=== PATIENT | male | born 1985 ===

== ENCOUNTER 2018-10-29 19:34 | Emergency (ER) | payer MEDICAID ==
[2018-10-29] MEDS ORDERED: Sulfamethoxazole/Trimethoprim 800-160 MG Tab PO ONE (20:25)
[2018-10-29] MEDS ORDERED: cefTRIAXone 1 GM Vial IM ONE (20:25)
--- NOTE | 2018-10-29 20:26 | EDM.PDOC ---
ED HPI GENERAL MEDICAL PROBLEM - General Chief Complaint: Skin Complaint Stated Complaint: SORE ON BEHIND Time Seen by Provider: 10/29/18 20:26 Source of Information: Reports: Patient - History of Present Illness INITIAL COMMENTS - FREE TEXT/NARRATIVE: HISTORY AND PHYSICAL: History of present illness: []Patient has a hand-sized cellulitis on his right buttock, measures 14 cm x 9 cm centrally there is a small area of induration approximately 3 cm in diameter there is no fluctuance or open lesion no exudate for drainage for culture No fever nausea vomiting chills sweats no chest pain shortness breath headache dizziness palpitation no bowel or urine symptoms Review of systems: As per history of present illness and below otherwise all systems reviewed and negative. Past medical history: As per history of present illness and as reviewed below otherwise noncontributory. Surgical history: As per history of present illness and as reviewed below otherwise noncontributory. Social history: No reported history of drug or alcohol abuse. Family history: As per history of present illness and as reviewed below otherwise noncontributory. Physical exam: HEENT: Atraumatic, normocephalic, pupils reactive, negative for conjunctival pallor or scleral icterus, mucous membranes moist, throat clear, neck supple, nontender, trachea midline. Lungs: Clear to auscultation, breath sounds equal bilaterally, chest nontender. Heart: S1S2, regular, negative for clicks, rubs, or JVD. Abdomen: Soft, nondistended, nontender. Negative for masses or hepatosplenomegaly. Negative for costovertebral tenderness. Pelvis: Stable nontender. Genitourinary: Deferred. Rectal: Deferred. Extremities: Atraumatic, negative for cords or calf pain. Neurovascular unremarkable. Neuro: Awake, alert, oriented. Cranial nerves II through XII unremarkable. Cerebellum unremarkable. Motor and sensory unremarkable throughout. Exam nonfocal. Diagnostics: []Clinical Marcated with skin pen Therapeutics: Gram Rocephin IV Bactrim double strength by mouth twice a day #20 no refill [] Impression: [1 g Rocephin IM Bactrim double strength by mouth now and twice a day #20 no refill ] Definitive disposition and diagnosis as appropriate pending reevaluation and review of above. right buttock Pain Score (Numeric/FACES): 9 - Related Data Allergies Allergy/AdvReac Type Severity Reaction Status Date / Time No Known Allergies Allergy Verified 10/29/18 20:20 Home Meds: Home Meds . [No Known Home Meds] 10/29/18 [History] Past Medical History - Past Surgical History GI Surgical History: Reports: Hernia, Inguinal Social & Family History - Family History Family Medical History: Noncontributory - Tobacco Use Smoking Status *Q: Current Every Day Smoker Years of Tobacco use: 20 Packs/Tins Daily: 1 - Recreational Drug Use Recreational Drug Use: Yes Drug Use in Last 12 Months: Yes Recreational Drug Type: Reports: Methamphetamine Recreational Drug Use Frequency: Daily ED ROS GENERAL - Review of Systems Review Of Systems: See Below ED EXAM, SKIN/RASH Exam: See Below Course - Vital Signs Last Recorded V/S: Last Vital Signs Temp 99 F 10/29/18 20:10 Pulse 110 H 10/29/18 20:10 Resp 16 10/29/18 20:10 BP 102/49 L 10/29/18 20:10 Pulse Ox 99 10/29/18 20:10 - Orders/Labs/Meds Meds: Medications Discontinued Medications Generic Name Dose Route Start Last Admin Trade Name Freq PRN Reason Stop Dose Admin Ceftriaxone Sodium 1 gm 10/29/18 20:25 Rocephin IM 10/29/18 20:26 ONETIME ONE Trimethoprim/Sulfamethoxazole 1 tab 10/29/18 20:25 Septra Ds PO 10/29/18 20:26 ONETIME ONE Departure - Departure Time of Disposition: 20:34 Disposition: Home, Self-Care 01 Condition: Good Clinical Impression: Cellulitis - Discharge Information Referrals: PCP,None [Primary Care Provider] - Forms: ED Department Discharge Additional Instructions: The following information is given to patients seen in the emergency department who are being discharged to home. This information is to outline your options for follow-up care. We provide all patients seen in our emergency department with a follow-up referral. The need for follow-up, as well as the timing and circumstances, are variable depending upon the specifics of your emergency department visit. If you don't have a primary care physician on staff, we will provide you with a referral. We always advise you to contact your personal physician following an emergency department visit to inform them of the circumstance of the visit and for follow-up with them and/or the need for any referrals to a consulting specialist. The emergency department will also refer you to a specialist when appropriate. This referral assures that you have the opportunity for follow-up care with a specialist. All of these measure are taken in an effort to provide you with optimal care, which includes your follow-up. Under all circumstances we always encourage you to contact your private physician who remains a resource for coordinating your care. When calling for follow-up care, please make the office aware that this follow-up is from your recent emergency room visit. If for any reason you are refused follow-up, please contact the [facility] emergency department at and asked to speak to the emergency department charge nurse.
[2018-10-29] MEDS ORDERED: Lidocaine 1% 4 ML ONE (20:39)
== END 2018-10-29 21:00 | disposition home or self-care (01) ==
LOC: MW.ED 19:34
DX: L03.317 Cellulitis of buttock (principal); F17.210 Nicotine dependence, cigarettes, uncomplicated
CPT/HCPCS: 96372; 99283; A9270; J0696; J2001

== ENCOUNTER 2018-10-31 01:00 | Inpatient (IN) | payer MEDICAID ==
--- NOTE | 2018-10-31 01:03 | EDM.PDOC ---
ED HPI GENERAL MEDICAL PROBLEM - General Stated Complaint: SORE ON BEHIND, FEVER, VOMITING Time Seen by Provider: 10/31/18 01:02 Source of Information: Reports: Patient - History of Present Illness INITIAL COMMENTS - FREE TEXT/NARRATIVE: HISTORY AND PHYSICAL: History of present illness: [Patient presents with a cellulitis on his right buttock he was seen 2-3 days prior through the emergency room and placed on Bactrim, he was noncompliant with medication and did not fill the prescription electing to take some Keflex he had left over, the nidus of the lesion did abscess and drain on its own at home was able to express some purulence here for culture tonight This has spread outside the lines of demarcation make an approximately an 18 cm by 6-8 cm lesion Patient has subjective fever and some vomiting no chills or sweats no chest pain shortness breath headache dizziness palpitation about a urine symptoms Review of systems: As per history of present illness and below otherwise all systems reviewed and negative. Past medical history: As per history of present illness and as reviewed below otherwise noncontributory. Surgical history: As per history of present illness and as reviewed below otherwise noncontributory. Social history: No reported history of drug or alcohol abuse. Family history: As per history of present illness and as reviewed below otherwise noncontributory. Physical exam: HEENT: Atraumatic, normocephalic, pupils reactive, negative for conjunctival pallor or scleral icterus, mucous membranes moist, throat clear, neck supple, nontender, trachea midline. Lungs: Clear to auscultation, breath sounds equal bilaterally, chest nontender. Heart: S1S2, regular, negative for clicks, rubs, or JVD. Abdomen: Soft, nondistended, nontender. Negative for masses or hepatosplenomegaly. Negative for costovertebral tenderness. Pelvis: Stable nontender. Genitourinary: Deferred. Rectal: Deferred. Extremities: Atraumatic, negative for cords or calf pain. Neurovascular unremarkable. Neuro: Awake, alert, oriented. Cranial nerves II through XII unremarkable. Cerebellum unremarkable. Motor and sensory unremarkable throughout. Exam nonfocal. GEN as per history of present illness right buttock affected Diagnostics: [] CBC CMP blood cultures Therapeutics: Vancomycin Clindamycin Normal saline I&D performed-suppressed a small amount of exudate Lidocaine T dap Wound is flushed and iodoform packing no complication or complaint [] Impression: [ cellulitis and abscess right buttock ] Definitive disposition and diagnosis as appropriate pending reevaluation and review of above. right buttocks Pain Score (Numeric/FACES): 7 - Related Data Allergies Allergy/AdvReac Type Severity Reaction Status Date / Time No Known Allergies Allergy Verified 10/31/18 01:10 Past Medical History - Past Surgical History GI Surgical History: Reports: Hernia, Inguinal Social & Family History - Family History Family Medical History: Noncontributory ED ROS GENERAL - Review of Systems Review Of Systems: See Below ED EXAM, GENERAL - Physical Exam Exam: See Below Course - Vital Signs Last Recorded V/S: Last Vital Signs Temp 97 F 10/31/18 01:10 Pulse 106 H 10/31/18 01:10 Resp 18 10/31/18 01:10 BP 150/79 H 10/31/18 01:10 Pulse Ox 98 10/31/18 01:10 - Orders/Labs/Meds Orders: Active Orders 24 hr Category Date Time Status Vaccines to be Administered [RC] PER UNIT ROUTINE Care 10/31/18 01:34 Active CULTURE BLOOD [BC] Stat Lab 10/31/18 01:23 Received CULTURE BLOOD [BC] Stat Lab 10/31/18 01:38 Received CULTURE WOUND [RM] Stat Lab 10/31/18 01:13 Received CULTURE WOUND [RM] Stat Lab 10/31/18 01:50 Ordered UA RFX JESUS AND CULT IF INDIC [URIN] Stat Lab 10/31/18 01:03 Ordered Clindamycin Phosphate [Cleocin] 300 mg Med 10/31/18 02:13 Active Sodium Chloride 0.9% [Normal Saline] 50 ml IV ONETIME Sodium Chloride 0.9% [Normal Saline] 1,000 ml Med 10/31/18 02:30 Ordered IV STAT Vancomycin [Vancocin] 1 gm Med 10/31/18 02:13 Active Sodium Chloride 0.9% [Normal Saline] 250 ml IV ONETIME Blood Culture x2 Reflex Set [OM.PC] Stat Oth 10/31/18 01:03 Ordered Medication Orders Clindamycin Phosphate 300 mg/ (Sodium Chloride) 52 mls @ 100 mls/hr IV ONETIME ONE Stop: 10/31/18 02:44 Vancomycin HCl 1 gm/ Sodium (Chloride) 250 mls @ 250 mls/hr IV ONETIME ONE Stop: 10/31/18 03:12 Labs: Laboratory Tests 10/31/18 10/31/18 Range/Units 01:23 01:23 WBC 21.44 H (4.0-11.0) K/uL RBC 4.07 L (4.50-5.90) M/uL Hgb 12.4 L (13.0-17.0) g/dL Hct 37.2 L (38.0-50.0) % MCV 91.4 (80.0-98.0) fL MCH 30.5 (27.0-32.0) pg MCHC 33.3 (31.0-37.0) g/dL RDW Std Deviation 43.8 (28.0-62.0) fl RDW Coeff of Mirta 13 (11.0-15.0) % Plt Count 214 (150-400) K/uL MPV 9.80 (7.40-12.00) fL Add Manual Diff YES Neutrophils % (Manual) 69 (48.0-80.0) % Band Neutrophils % 2 % Lymphocytes % (Manual) 19 (16.0-40.0) % Monocytes % (Manual) 9 (0.0-15.0) % Eosinophils % (Manual) 1 (0.0-7.0) % Absolute Seg Neuts 14.8 H (1.4-5.7) Band Neutrophils # 0.4 Lymphocytes # (Manual) 4.1 H (0.6-2.4) Monocytes # (Manual) 1.9 H (0.0-0.8) Eosinophils # (Manual) 0.2 (0.0-0.7) Sodium 135 L (136-148) mmol/L Potassium 4.0 (3.5-5.1) mmol/L Chloride 101 (98-107) mmol/L Carbon Dioxide 23.5 (21.0-32.0) mmol/L BUN 9 (7.0-18.0) mg/dL Creatinine 0.8 (0.8-1.3) mg/dL Est Cr Clr Drug Dosing 128.88 mL/min Estimated GFR (MDRD) > 60.0 ml/min Glucose 146 H (74-106) mg/dL Calcium 9.0 (8.5-10.1) mg/dL Total Bilirubin 0.5 (0.2-1.0) mg/dL AST 25 (15-37) IU/L ALT 73 H (14-63) IU/L Alkaline Phosphatase 111 (46-116) U/L Total Protein 7.6 (6.4-8.2) g/dL Albumin 3.3 L (3.4-5.0) g/dL Globulin 4.3 H (2.6-4.0) g/dL Albumin/Globulin Ratio 0.8 L (0.9-1.6) Meds: Medications Generic Name Dose Route Start Last Admin Trade Name Freq PRN Reason Stop Dose Admin Clindamycin Phosphate 300 mg/ 52 mls @ 100 mls/hr 10/31/18 02:13 Sodium Chloride IV 10/31/18 02:44 ONETIME ONE Vancomycin HCl 1 gm/ Sodium 250 mls @ 250 mls/hr 10/31/18 02:13 Chloride IV 10/31/18 03:12 ONETIME ONE Discontinued Medications Generic Name Dose Route Start Last Admin Trade Name Freq PRN Reason Stop Dose Admin Diphtheria/Tetanus/Acell Pertussis 0.5 ml 10/31/18 01:34 10/31/18 01:39 Adacel IM 10/31/18 01:35 0.5 ml .ONCE ONE Administration Sodium Chloride 1,000 mls @ 999 mls/hr 10/31/18 01:04 10/31/18 01:28 Normal Saline IV 10/31/18 02:04 999 mls/hr STAT ONE Administration Lidocaine HCl Confirm 10/31/18 01:58 Xylocaine-Mpf 1% Administered 10/31/18 01:59 Dose 5 mls @ as directed .ROUTE .STK-MED ONE Lidocaine HCl 10 ml 10/31/18 01:27 10/31/18 01:46 Xylocaine 1% INJECT 10/31/18 01:28 Not Given ONETIME ONE Lidocaine HCl 5 ml 10/31/18 01:37 10/31/18 02:00 Xylocaine-Mpf 1% INJECT 10/31/18 01:38 5 ml ONETIME ONE Administration Departure - Departure Time of Disposition: 02:18 Disposition: Admitted As Inpatient 64 Condition: Fair Clinical Impression: Abscess, Cellulitis and abscess of buttock - Discharge Information Referrals: PCP,None [Primary Care Provider] - - My Orders Last 24 Hours: My Active Orders 10/31/18 01:03 UA RFX JESUS AND CULT IF INDIC [URIN] Stat Blood Culture x2 Reflex Set [OM.PC] Stat 10/31/18 01:13 CULTURE WOUND [RM] Stat 10/31/18 01:23 CULTURE BLOOD [BC] Stat 10/31/18 01:34 Vaccines to be Administered [RC] PER UNIT ROUTINE 10/31/18 01:38 CULTURE BLOOD [BC] Stat 10/31/18 01:50 CULTURE WOUND [RM] Stat 10/31/18 02:13 Clindamycin Phosphate [Cleocin] 300 mg Sodium Chloride 0.9% [Normal Saline] 50 ml IV ONETIME Vancomycin [Vancocin] 1 gm Sodium Chloride 0.9% [Normal Saline] 250 ml IV ONETIME 10/31/18 02:30 Sodium Chloride 0.9% [Normal Saline] 1,000 ml IV STAT - Assessment/Plan Last 24 Hours: My Active Orders 10/31/18 01:03 UA RFX JESUS AND CULT IF INDIC [URIN] Stat Blood Culture x2 Reflex Set [OM.PC] Stat 10/31/18 01:13 CULTURE WOUND [RM] Stat 10/31/18 01:23 CULTURE BLOOD [BC] Stat 10/31/18 01:34 Vaccines to be Administered [RC] PER UNIT ROUTINE 10/31/18 01:38 CULTURE BLOOD [BC] Stat 10/31/18 01:50 CULTURE WOUND [RM] Stat 10/31/18 02:13 Clindamycin Phosphate [Cleocin] 300 mg Sodium Chloride 0.9% [Normal Saline] 50 ml IV ONETIME Vancomycin [Vancocin] 1 gm Sodium Chloride 0.9% [Normal Saline] 250 ml IV ONETIME 10/31/18 02:30 Sodium Chloride 0.9% [Normal Saline] 1,000 ml IV STAT
[2018-10-31] MEDS ORDERED: Sodium Chloride 0.9% 1,000 ML IV ONE (01:04)
[2018-10-31] MEDS ORDERED: Lidocaine 1% 10 ML MDV INJECT ONE (01:27)
[2018-10-31] MEDS ORDERED: Diphtheria,Pertussis(Acell),Tetanus Vaccine 0.5 ML Syringe IM ONE (01:34)
[2018-10-31] MEDS ORDERED: Lidocaine 1% 0 ML ONE (01:58)
[2018-10-31 02:02] LABS: CHLORIDE,CL 101 mmol/L (98-107); SODIUM,NA 135 mmol/L (136-148)
[2018-10-31] MEDS ORDERED: Sodium Chloride 0.9% 1,000 ML IV SCH ×2 (02:30→03:15)
[2018-10-31] MEDS ORDERED: Acetaminophen 325 MG Tab PO PRN (03:09)
[2018-10-31] MEDS ORDERED: oxyCODONE 5 MG Tab PO PRN (03:09)
[2018-10-31] MEDS ORDERED: Morphine 2 MG/ML Syringe IVPUSH PRN (03:10)
[2018-10-31] MEDS ORDERED: Ondansetron 4 MG Tab.DIS PO PRN (03:10)
[2018-10-31] MEDS ORDERED: Clindamycin Phosphate in D5W 300 MG in Premix Bag 1 BAG IV ONE ×2 (04:00)
[2018-10-31] MEDS ORDERED: Piperacillin/Tazobactam 4.5 GM in Sodium Chloride 0.9% 100 ML IV SCH (08:30)
--- NOTE | 2018-10-31 09:18 | PCM.HP ---
<Tam Sheets - Last Filed: 10/31/18 09:13> H&P History of Present Illness - General Date of Service: 10/31/18 Admit Problem/Dx: Admission Diagnosis/Problem Admission Diagnosis/Problem Cellulitis and abscess of buttock Source of Information: Patient History Limitations: Reports: No Limitations - History of Present Illness Initial Comments - Free Text/Narative: This is a 33M with no past medical history that presented to the ER w/ concerns of a "boil" on his right buttocks. Patient was seen in the ER earlier this week and was discharged home on PO Bactrim. Patient says that he didn't parts picker this prescription, and instead tried a home remedy with his girlfriend involving milk. Patient then came back to the ER w/ concerns of increased pain, subjective fever. He had an I&D done in the ER which he sees provided immediate relief. He feels much better this AM with much less pain, no subjective fever. ER course: WBC count 21k Glucose 146 hemodynamically stable, afebrile. negative lactate blood cultures obtained Obtained ESR - 61 right buttocks Pain Score (Numeric/FACES): 0 - Related Data Allergies/Adverse Reactions: Allergies Allergy/AdvReac Type Severity Reaction Status Date / Time piperacillin [From Zosyn] Allergy Mild Itching Verified 10/31/18 10:53 tazobactam [From Zosyn] Allergy Mild Itching Verified 10/31/18 10:53 Past Medical History HEENT History: Reports: None Cardiovascular History: Reports: None Respiratory History: Reports: None Gastrointestinal History: Reports: Other (See Below) Other Gastrointestinal History: HERNIA Genitourinary History: Reports: None Musculoskeletal History: Reports: None Neurological History: Reports: None Psychiatric History: Reports: None Endocrine/Metabolic History: Reports: None Hematologic History: Reports: None Oncologic (Cancer) History: Reports: None Dermatologic History: Reports: None - Infectious Disease History Infectious Disease History: Reports: None - Past Surgical History GI Surgical History: Reports: Hernia, Inguinal Social & Family History - Family History Family Medical History: Noncontributory - Tobacco Use Smoking Status *Q: Current Every Day Smoker Years of Tobacco use: 20 Packs/Tins Daily: 0.2 Second Hand Smoke Exposure: Yes - Caffeine Use Caffeine Use: Reports: Soda Caffeine Use Comment: Rarely drinks soda - Recreational Drug Use Recreational Drug Use: Yes Drug Use in Last 12 Months: Yes Recreational Drug Type: Reports: Marijuana/Hashish, Methamphetamine Recreational Drug Last Use: 1 week ago H&P Review of Systems - Review of Systems: Review Of Systems: ROS reveals no pertinent complaints other than HPI. Exam - Exam Exam: See Below - Vital Signs Vital Signs: Last Vital Signs Temp 36.8 C 10/31/18 07:48 Pulse 81 10/31/18 07:48 Resp 16 10/31/18 07:48 BP 128/68 10/31/18 07:48 Pulse Ox 99 10/31/18 07:48 Weight: 82.055 kg - Exam General: Alert, Oriented, 4 HEENT: PERRLA, Hearing Intact, Mucosa Moist & [place], Nares Patent, Normal Nasal Septum, Posterior Pharynx Clear, Conjunctiva Clear, EOMI, EACs Clear, TMs Clear Neck: Supple, Trachea Midline, 2 Lungs: Clear to Auscultation, Normal Respiratory Effort Cardiovascular: Regular Rate, Regular Rhythm GI/Abdominal Exam: Normal Bowel Sounds, Soft, Non-Tender, No Organomegaly, No Distention, No Abnormal Bruit, No Mass, Pelvis Stable Back Exam: Normal Inspection, Full Range of Motion, NT Extremities: Normal Inspection, Normal Range of Motion, Non-Tender, No Pedal Edema, Normal Capillary Refill Peripheral Pulses: 2+: Dorsalis Pedis (L), Dorsalis Pedis (R) Skin: Other (right buttock cellulitis w/pen line indicating decreasing induration and erythema written as "day 3". Nontender to palpation. ) Neurological: Cranial Nerves Intact, Reflexes Equal Bilateral Neuro Extensive - Mental Status: Alert, Oriented x3, Normal Mood/Affect, Normal Cognition Neuro Extensive - Motor, Sensory, Reflexes: CN II-XII Intact, Normal Gait, Normal Reflexes Psychiatric: Alert, Normal Affect, Normal Mood - Patient Data Lab Results Last 24 hrs: Laboratory Results - last 24 hr 10/31/18 10/31/18 10/31/18 Range/Units 01:23 01:23 03:00 WBC 21.44 H (4.0-11.0) K/uL RBC 4.07 L (4.50-5.90) M/uL Hgb 12.4 L (13.0-17.0) g/dL Hct 37.2 L (38.0-50.0) % MCV 91.4 (80.0-98.0) fL MCH 30.5 (27.0-32.0) pg MCHC 33.3 (31.0-37.0) g/dL RDW Std Deviation 43.8 (28.0-62.0) fl RDW Coeff of [place] 13 (11.0-15.0) % Plt Count 214 (150-400) K/uL MPV 9.80 (7.40-12.00) fL Add Manual Diff YES Neutrophils % (Manual) 69 (48.0-80.0) % Band Neutrophils % 2 % Lymphocytes % (Manual) 19 (16.0-40.0) % Monocytes % (Manual) 9 (0.0-15.0) % Eosinophils % (Manual) 1 (0.0-7.0) % Absolute Seg Neuts 14.8 H (1.4-5.7) Band Neutrophils # 0.4 Lymphocytes # (Manual) 4.1 H (0.6-2.4) Monocytes # (Manual) 1.9 H (0.0-0.8) Eosinophils # (Manual) 0.2 (0.0-0.7) Lactate (0.20-2.00) mmol/L Sodium 135 L (136-148) mmol/L Potassium 4.0 (3.5-5.1) mmol/L Chloride 101 (98-107) mmol/L Carbon Dioxide 23.5 (21.0-32.0) mmol/L BUN 9 (7.0-18.0) mg/dL Creatinine 0.8 (0.8-1.3) mg/dL Est Cr Clr Drug Dosing 128.88 mL/min Estimated GFR (MDRD) > 60.0 ml/min Glucose 146 H (74-106) mg/dL Calcium 9.0 (8.5-10.1) mg/dL Total Bilirubin 0.5 (0.2-1.0) mg/dL AST 25 (15-37) IU/L ALT 73 H (14-63) IU/L Alkaline Phosphatase 111 (46-116) U/L Total Protein 7.6 (6.4-8.2) g/dL Albumin 3.3 L (3.4-5.0) g/dL Globulin 4.3 H (2.6-4.0) g/dL Albumin/Globulin Ratio 0.8 L (0.9-1.6) Urine Color YELLOW Urine Appearance CLEAR Urine pH 6.0 (5.0-8.0) Ur Specific [place] 1.025 (1.001-1.035) Urine Protein TRACE H (NEGATIVE) mg/dL Urine Glucose (UA) NEGATIVE (NEGATIVE) mg/dL Urine Ketones NEGATIVE (NEGATIVE) mg/dL Urine Occult Blood MODERATE H (NEGATIVE) Urine Nitrite NEGATIVE (NEGATIVE) Urine Bilirubin NEGATIVE (NEGATIVE) Urine Urobilinogen 0.2 (<2.0) EU/dL Ur Leukocyte Esterase NEGATIVE (NEGATIVE) Urine RBC 1-2 (0-2/HPF) Urine WBC 0-1 (0-5/HPF) Ur Epithelial Cells RARE (NONE-FEW) Urine Bacteria RARE (NEGATIVE) Urine Mucus LIGHT (NONE-MOD) 10/31/18 Range/Units 07:52 WBC (4.0-11.0) K/uL RBC (4.50-5.90) M/uL Hgb (13.0-17.0) g/dL Hct (38.0-50.0) % MCV (80.0-98.0) fL MCH (27.0-32.0) pg MCHC (31.0-37.0) g/dL RDW Std Deviation (28.0-62.0) fl RDW Coeff of Mir[place] (11.0-15.0) % Plt Count (150-400) K/uL MPV (7.40-12.00) fL Add Manual Diff Neutrophils % (Manual) (48.0-80.0) % Band Neutrophils % % Lymphocytes % (Manual) (16.0-40.0) % Monocytes % (Manual) (0.0-15.0) % Eosinophils % (Manual) (0.0-7.0) % Absolute Seg Neuts (1.4-5.7) Band Neutrophils # Lymphocytes # (Manual) (0.6-2.4) Monocytes # (Manual) (0.0-0.8) Eosinophils # (Manual) (0.0-0.7) Lactate 0.7 (0.20-2.00) mmol/L Sodium (136-148) mmol/L Potassium (3.5-5.1) mmol/L Chloride (98-107) mmol/L Carbon Dioxide (21.0-32.0) mmol/L BUN (7.0-18.0) mg/dL Creatinine (0.8-1.3) mg/dL Est Cr Clr Drug Dosing mL/min Estimated GFR (MDRD) ml/min Glucose (74-106) mg/dL Calcium (8.5-10.1) mg/dL Total Bilirubin (0.2-1.0) mg/dL AST (15-37) IU/L ALT (14-63) IU/L Alkaline Phosphatase (46-116) U/L Total Protein (6.4-8.2) g/dL Albumin (3.4-5.0) g/dL Globulin (2.6-4.0) g/dL Albumin/Globulin Ratio (0.9-1.6) Urine Color Urine Appearance Urine pH (5.0-8.0) Ur Specific [place] (1.001-1.035) Urine Protein (NEGATIVE) mg/dL Urine Glucose (UA) (NEGATIVE) mg/dL Urine Ketones (NEGATIVE) mg/dL Urine Occult Blood (NEGATIVE) Urine Nitrite (NEGATIVE) Urine Bilirubin (NEGATIVE) Urine Urobilinogen (<2.0) EU/dL Ur Leukocyte Esterase (NEGATIVE) Urine RBC (0-2/HPF) Urine WBC (0-5/HPF) Ur Epithelial Cells (NONE-FEW) Urine Bacteria (NEGATIVE) Urine Mucus (NONE-MOD) Result Diagrams: 10/31/18 01:23 10/31/18 01:23 Problem List Initiated/Reviewed/Updated: Yes Orders Last 24hrs: Active Orders 24 hr Category Date Time Status Admission Status [Patient Status] [ADT] Stat ADT 10/31/18 02:18 Active Vaccines to be Administered [RC] PER UNIT ROUTINE Care 10/31/18 01:34 Active Regular Diet [DIET] Diet 10/31/18 Breakfast Active BASIC METABOLIC PANEL,BMP [CHEM] AM Lab 11/01/18 05:11 Ordered CBC WITH AUTO DIFF [HEME] AM Lab 11/01/18 05:11 Ordered CULTURE BLOOD [BC] Stat Lab 10/31/18 01:23 Received CULTURE BLOOD [BC] Stat Lab 10/31/18 01:38 Received CULTURE WOUND [RM] Stat Lab 10/31/18 01:13 Received ESR [SEDIMENTATION RATE AUTO] [HEME] Routine Lab 10/31/18 01:23 Received VANCOMYCIN TROUGH [CHEM] Timed Lab 11/01/18 09:30 Ordered Acetaminophen [Tylenol] Med 10/31/18 03:09 Active 650 mg PO Q6H PRN Morphine Med 10/31/18 03:10 Active 1 mg IVPUSH Q2H PRN Ondansetron [Zofran ODT] Med 10/31/18 03:10 Active 4 mg PO Q4H PRN Pharmacy to Dose - Vancomycin Med 10/31/18 03:15 Active 1 dose .XX ASDIRECTED Piperacillin/Tazobactam [Piperacil-Tazobact] 4.5 gm Med 10/31/18 08:30 Active Sodium Chloride 0.9% [Normal Saline] 100 ml IV Q6H Sodium Chloride 0.9% [Normal Saline] 1,000 ml Med 10/31/18 03:15 Active IV ASDIRECTED Vancomycin 1.25 gm Med 10/31/18 10:00 Active Sodium Chloride 0.9% [Normal Saline] 250 ml IV Q8H oxyCODONE Med 10/31/18 03:09 Active 5 mg PO Q4H PRN Blood Culture x2 Reflex Set [OM.PC] Stat Oth 10/31/18 01:03 Ordered Medication Orders Acetaminophen (Tylenol) 650 mg PO Q6H PRN PRN Reason: Pain (mild 1-3) Sodium Chloride (Normal Saline) 1,000 mls @ 100 mls/hr IV ASDIRECTED [facility] Vancomycin HCl 1.25 gm/ Sodium (Chloride) 250 mls @ 166.667 mls/hr IV Q8H [facility] Piperacillin Sod/Tazobactam (Sod 4.5 gm/ Sodium Chloride) 100 mls @ 200 mls/hr IV Q6H [facility] Morphine Sulfate (Morphine) 1 mg IVPUSH Q2H PRN PRN Reason: Pain (severe 7-10) Ondansetron HCl (Zofran Odt) 4 mg PO Q4H PRN PRN Reason: Nausea/Vomiting Oxycodone HCl (Oxycodone) 5 mg PO Q4H PRN PRN Reason: Pain (moderate 4-6) Vancomycin HCl (Pharmacy To Dose - Vancomycin) 1 dose .XX ASDIRECTED [facility] Assessment/Plan Comment:: Assessment: #1. Right buttock cellulitis s/p I&D #2. Leukocytosis #3. Elevated ESR #4. Subjective fever Plan: #1. Admit to the floor as inpatient. Vitals per floor. SCD+Lovenox for DVT Propyhlaxis. Encourage ambulation. #2. IV Vancomycin + Zosyn #3. CBC, BMP, ESR tomorrow morning #4. Pain management as ordered #5. Anticipate discharge 1-2 days. The cellulitis does appear to be improving along with his subjective complaints. Will hold off on surgery consult for now but may be indicated tomorrow based on symptom resolution/lab work. Patient understands and agrees to the plan. <Morteza Conte M - Last Filed: 10/31/18 12:03> H&P History of Present Illness - General Admit Problem/Dx: Admission Diagnosis/Problem Admission Diagnosis/Problem Cellulitis and abscess of buttock I have seen and examined the patient independently of Tam Sheets MD,diploma medical assistant. I have discussed the case with him. I agree with the assessment and plan of care outlined by diploma medical assistant. Please see orders. Exam - Vital Signs Vital Signs: Last Vital Signs Temp 37.2 C 10/31/18 11:41 Pulse 85 10/31/18 11:41 Resp 16 10/31/18 11:41 BP 132/68 10/31/18 11:41 Pulse Ox 97 10/31/18 11:41 - Patient Data Lab Results Last 24 hrs: Laboratory Results - last 24 hr 10/31/18 10/31/18 10/31/18 Range/Units 01:23 01:23 01:23 WBC 21.44 H (4.0-11.0) K/uL RBC 4.07 L (4.50-5.90) M/uL Hgb 12.4 L (13.0-17.0) g/dL Hct 37.2 L (38.0-50.0) % MCV 91.4 (80.0-98.0) fL MCH 30.5 (27.0-32.0) pg MCHC 33.3 (31.0-37.0) g/dL RDW Std Deviation 43.8 (28.0-62.0) fl RDW Coeff of Mirta 13 (11.0-15.0) % Plt Count 214 (150-400) K/uL MPV 9.80 (7.40-12.00) fL Add Manual Diff YES Neutrophils % (Manual) 69 (48.0-80.0) % Band Neutrophils % 2 % Lymphocytes % (Manual) 19 (16.0-40.0) % Monocytes % (Manual) 9 (0.0-15.0) % Eosinophils % (Manual) 1 (0.0-7.0) % Absolute Seg Neuts 14.8 H (1.4-5.7) Band Neutrophils # 0.4 Lymphocytes # (Manual) 4.1 H (0.6-2.4) Monocytes # (Manual) 1.9 H (0.0-0.8) Eosinophils # (Manual) 0.2 (0.0-0.7) ESR 61 H (0-14) mm/hr Lactate (0.20-2.00) mmol/L Sodium 135 L (136-148) mmol/L Potassium 4.0 (3.5-5.1) mmol/L Chloride 101 (98-107) mmol/L Carbon Dioxide 23.5 (21.0-32.0) mmol/L BUN 9 (7.0-18.0) mg/dL Creatinine 0.8 (0.8-1.3) mg/dL Est Cr Clr Drug Dosing 128.88 mL/min Estimated GFR (MDRD) > 60.0 ml/min Glucose 146 H (74-106) mg/dL Hemoglobin A1c (4.5-6.2) % Calcium 9.0 (8.5-10.1) mg/dL Total Bilirubin 0.5 (0.2-1.0) mg/dL AST 25 (15-37) IU/L ALT 73 H (14-63) IU/L Alkaline Phosphatase 111 (46-116) U/L Total Protein 7.6 (6.4-8.2) g/dL Albumin 3.3 L (3.4-5.0) g/dL Globulin 4.3 H (2.6-4.0) g/dL Albumin/Globulin Ratio 0.8 L (0.9-1.6) Urine Color Urine Appearance Urine pH (5.0-8.0) Ur Specific [place] (1.001-1.035) Urine Protein (NEGATIVE) mg/dL Urine Glucose (UA) (NEGATIVE) mg/dL Urine Ketones (NEGATIVE) mg/dL Urine Occult Blood (NEGATIVE) Urine Nitrite (NEGATIVE) Urine Bilirubin (NEGATIVE) Urine Urobilinogen (<2.0) EU/dL Ur Leukocyte Esterase (NEGATIVE) Urine RBC (0-2/HPF) Urine WBC (0-5/HPF) Ur Epithelial Cells (NONE-FEW) Urine Bacteria (NEGATIVE) Urine Mucus (NONE-MOD) 10/31/18 10/31/18 10/31/18 Range/Units 02:23 03:00 07:52 WBC (4.0-11.0) K/uL RBC (4.50-5.90) M/uL Hgb (13.0-17.0) g/dL Hct (38.0-50.0) % MCV (80.0-98.0) fL MCH (27.0-32.0) pg MCHC (31.0-37.0) g/dL RDW Std Deviation (28.0-62.0) fl RDW Coeff of [place] (11.0-15.0) % Plt Count (150-400) K/uL MPV (7.40-12.00) fL Add Manual Diff Neutrophils % (Manual) (48.0-80.0) % Band Neutrophils % % Lymphocytes % (Manual) (16.0-40.0) % Monocytes % (Manual) (0.0-15.0) % Eosinophils % (Manual) (0.0-7.0) % Absolute Seg Neuts (1.4-5.7) Band Neutrophils # Lymphocytes # (Manual) (0.6-2.4) Monocytes # (Manual) (0.0-0.8) Eosinophils # (Manual) (0.0-0.7) ESR (0-14) mm/hr Lactate 0.7 (0.20-2.00) mmol/L Sodium (136-148) mmol/L Potassium (3.5-5.1) mmol/L Chloride (98-107) mmol/L Carbon Dioxide (21.0-32.0) mmol/L BUN (7.0-18.0) mg/dL Creatinine (0.8-1.3) mg/dL Est Cr Clr Drug Dosing mL/min Estimated GFR (MDRD) ml/min Glucose (74-106) mg/dL Hemoglobin A1c 5.6 (4.5-6.2) % Calcium (8.5-10.1) mg/dL Total Bilirubin (0.2-1.0) mg/dL AST (15-37) IU/L ALT (14-63) IU/L Alkaline Phosphatase (46-116) U/L Total Protein (6.4-8.2) g/dL Albumin (3.4-5.0) g/dL Globulin (2.6-4.0) g/dL Albumin/Globulin Ratio (0.9-1.6) Urine Color YELLOW Urine Appearance CLEAR Urine pH 6.0 (5.0-8.0) Ur Specific [place] 1.025 (1.001-1.035) Urine Protein TRACE H (NEGATIVE) mg/dL Urine Glucose (UA) NEGATIVE (NEGATIVE) mg/dL Urine Ketones NEGATIVE (NEGATIVE) mg/dL Urine Occult Blood MODERATE H (NEGATIVE) Urine Nitrite NEGATIVE (NEGATIVE) Urine Bilirubin NEGATIVE (NEGATIVE) Urine Urobilinogen 0.2 (<2.0) EU/dL Ur Leukocyte Esterase NEGATIVE (NEGATIVE) Urine RBC 1-2 (0-2/HPF) Urine WBC 0-1 (0-5/HPF) Ur Epithelial Cells RARE (NONE-FEW) Urine Bacteria RARE (NEGATIVE) Urine Mucus LIGHT (NONE-MOD) Result Diagrams: 10/31/18 01:23 10/31/18 01:23 Orders Last 24hrs: Active Orders 24 hr Category Date Time Status Admission Status [Patient Status] [ADT] Stat ADT 10/31/18 02:18 Active Vaccines to be Administered [RC] PER UNIT ROUTINE Care 10/31/18 01:34 Active Regular Diet [DIET] Diet 10/31/18 Breakfast Active BASIC METABOLIC PANEL,BMP [CHEM] AM Lab 11/01/18 05:11 Ordered CBC WITH AUTO DIFF [HEME] AM Lab 11/01/18 05:11 Ordered CULTURE BLOOD [BC] Stat Lab 10/31/18 01:23 Received CULTURE BLOOD [BC] Stat Lab 10/31/18 01:38 Received CULTURE WOUND [RM] Stat Lab 10/31/18 01:13 Received VANCOMYCIN TROUGH [CHEM] Timed Lab 11/01/18 09:30 Ordered Acetaminophen [Tylenol] Med 10/31/18 03:09 Active 650 mg PO Q6H PRN Ciprofloxacin in D5W [Cipro in D5W 400 MG/200 ML] 400 Med 10/31/18 12:00 Active mg Premix Bag 1 bag IV Q12H Enoxaparin [Lovenox] Med 10/31/18 09:30 Active 40 mg SUBCUT Q24H Morphine Med 10/31/18 03:10 Active 1 mg IVPUSH Q2H PRN Ondansetron [Zofran ODT] Med 10/31/18 03:10 Active 4 mg PO Q4H PRN Pharmacy to Dose - Vancomycin Med 10/31/18 03:15 Active 1 dose .XX ASDIRECTED Sodium Chloride 0.9% [Normal Saline] 1,000 ml Med 10/31/18 03:15 Active IV ASDIRECTED Vancomycin 1.25 gm Med 10/31/18 10:00 Active Sodium Chloride 0.9% [Normal Saline] 250 ml IV Q8H metroNIDAZOLE/Normal Saline [Flagyl 500 MG in NS 100 ML Med 10/31/18 13:00 Active ] 500 mg Premix Bag 1 bag IV Q6H oxyCODONE Med 10/31/18 03:09 Active 5 mg PO Q4H PRN Blood Culture x2 Reflex Set [OM.PC] Stat Oth 10/31/18 01:03 Ordered Code Status [Resuscitation Status] Routine Resus Stat 10/31/18 11:01 Ordered Medication Orders Acetaminophen (Tylenol) 650 mg PO Q6H PRN PRN Reason: Pain (mild 1-3) Enoxaparin Sodium (Lovenox) 40 mg SUBCUT Q24H [facility] Last Admin: 10/31/18 10:05 Dose: 40 mg Sodium Chloride (Normal Saline) 1,000 mls @ 100 mls/hr IV ASDIRECTED [facility] Vancomycin HCl 1.25 gm/ Sodium (Chloride) 250 mls @ 166.667 mls/hr IV Q8H [facility] Last Admin: 10/31/18 11:05 Dose: 166.667 mls/hr Metronidazole 500 mg/ Premix 100 mls @ 100 mls/hr IV Q6H [facility] Ciprofloxacin/Dextrose 400 mg/ (Premix) 200 mls @ 200 mls/hr IV Q12H [facility] Morphine Sulfate (Morphine) 1 mg IVPUSH Q2H PRN PRN Reason: Pain (severe 7-10) Ondansetron HCl (Zofran Odt) 4 mg PO Q4H PRN PRN Reason: Nausea/Vomiting Oxycodone HCl (Oxycodone) 5 mg PO Q4H PRN PRN Reason: Pain (moderate 4-6) Vancomycin HCl (Pharmacy To Dose - Vancomycin) 1 dose .XX ASDIRECTED [facility]
[2018-10-31 09:35] LABS: HEMOGLOBIN A1C 5.6 % (4.5-6.2)
[2018-10-31] MEDS: Enoxaparin 40 MG/0.4 ML Syringe SUBCUT SCH (10:05)
[2018-10-31] MEDS ORDERED: diphenhydrAMINE 50 MG/ML SDV IVPUSH ONE (10:48)
[2018-10-31] MEDS ORDERED: Ampicillin/Sulbactam Na 1.5 GM in Sodium Chloride 0.9% 50 ML IV SCH (11:00)
[2018-10-31] MEDS ORDERED: Ciprofloxacin in D5W 400 MG in Premix Bag 1 BAG IV SCH ×2 (11:00)
[2018-10-31] MEDS ORDERED: metroNIDAZOLE/Normal Saline 500 MG in Premix Bag 1 BAG IV SCH (12:00)
[2018-10-31] MEDS ORDERED: Clindamycin Phosphate in D5W 300 MG in Premix Bag 1 BAG IV SCH ×2 (12:00)
[2018-10-31] MEDS: Ciprofloxacin in D5W 400 MG in Premix Bag 1 BAG IV SCH ×4 (12:57→23:37)
[2018-10-31] MEDS: metroNIDAZOLE/Normal Saline 500 MG in Premix Bag 1 BAG IV SCH ×2 (14:08→19:01)
[2018-11-01] MEDS: metroNIDAZOLE/Normal Saline 500 MG in Premix Bag 1 BAG IV SCH ×2 (01:17→06:47)
[2018-11-01 06:12] LABS: CHLORIDE,CL 106 mmol/L (98-107); SODIUM,NA 141 mmol/L (136-148)
--- NOTE | 2018-11-01 09:10 | PCM.DCSUM1 ---
<Tam Sheets - Last Filed: 11/01/18 09:06> Discharge Summary - Hospital Course Free Text/Narrative:: Admission date: 10/31/2018 Discharge date: 11/01/2018 Admission diagnosis: #1. Right buttock cellulitis s/p I&D #2. Leukocytosis #3. Elevated ESR #4. Subjective fever Discharge diagnosis: #1. Right buttocks cellulitis #2. Leukocytosis - improving #3. Elevated ESR - improving #4. Subjective fever - resolved Hospital course: 33M that initially presented to the ER w/ right buttocks pain was noted to have abscess formation, which was I&D'd. Patient had elevated inflammatory markers including a WBC of 21k, and ESR 61. He had a negative lactate. Blood cultures negative. He was admitted for IV abx. Initially placed on IV Vancomycin, Zosyn. He developed hives to zosyn shortly so was switched to a regimen of IV Vanc, Flagyl, Cipro. He responded well to this. His WBC was 16k the next morning and he was eager to leave. He stated that his pain had completely resolved, he denies any fever. The surrounding erythema decreased. The packing placed in the ER was removed. He was discharged home on PO bactrim and to f/u with a PCP. - Discharge Data Discharge Date: 11/01/18 Discharge Disposition: Home, Self-Care 01 Condition: Fair - Patient Instructions Diet: Usual Diet as Tolerated Activity: As Tolerated Driving: May Drive Today Showering/Bathing: May Shower Notify Provider of: Fever, Increased Pain, Swelling and Redness, Drainage - Discharge Plan Prescriptions/Med Rec: Sulfamethoxazole/Trimethoprim [Bactrim Ds Tablet] 1 each PO Q12H 6 Days #12 tablet Home Medications: Home Meds Sulfamethoxazole/Trimethoprim [Bactrim Ds Tablet] 1 each PO Q12H 6 Days #12 tablet 11/01/18 [Rx] Patient Handouts: Cellulitis, Adult, [id number], Sulfamethoxazole; Trimethoprim, SMX-TMP tablets Referrals: Sandie Houser NP [Nurse Practitioner] - 11/13/18 1:30 pm - Discharge Summary/Plan Comment DC Time >30 min.: No - Patient Data Vitals - Most Recent: Last Vital Signs Temp 37.2 C 11/01/18 08:00 Pulse 84 11/01/18 08:00 Resp 16 11/01/18 08:00 BP 134/72 11/01/18 08:00 Pulse Ox 97 11/01/18 08:00 Weight - Most Recent: 82.055 kg I&O - Last 24 hours: Intake & Output 10/31/18 11/01/18 11/01/18 22:59 06:59 14:59 Intake Total 3555 2483 Output Total 9470 3100 Balance 1055 -617 Lab Results - Last 24 hrs: Laboratory Results - last 24 hr 10/31/18 10/31/18 11/01/18 Range/Units 01:23 02:23 05:15 WBC 16.48 H (4.0-11.0) K/uL RBC 3.87 L (4.50-5.90) M/uL Hgb 11.4 L (13.0-17.0) g/dL Hct 35.5 L (38.0-50.0) % MCV 91.7 (80.0-98.0) fL MCH 29.5 (27.0-32.0) pg MCHC 32.1 (31.0-37.0) g/dL RDW Std Deviation 47.5 (28.0-62.0) fl RDW Coeff of Mirta 14 (11.0-15.0) % Plt Count 240 (150-400) K/uL MPV 9.90 (7.40-12.00) fL Neut % (Auto) 72.1 (48.0-80.0) % Lymph % (Auto) 18.6 (16.0-40.0) % Foster % (Auto) 7.0 (0.0-15.0) % Eos % (Auto) 2.1 (0.0-7.0) % Baso % (Auto) 0.2 (0.0-1.5) % Neut # (Auto) 11.9 H (1.4-5.7) K/uL Lymph # (Auto) 3.1 H (0.6-2.4) K/uL Foster # (Auto) 1.2 H (0.0-0.8) K/uL Eos # (Auto) 0.4 (0.0-0.7) K/uL Baso # (Auto) 0.0 (0.0-0.1) K/uL Nucleated RBC % 0.0 /100WBC Nucleated RBCs # 0 K/uL ESR 61 H 60 H (0-14) mm/hr Sodium (136-148) mmol/L Potassium (3.5-5.1) mmol/L Chloride (98-107) mmol/L Carbon Dioxide (21.0-32.0) mmol/L BUN (7.0-18.0) mg/dL Creatinine (0.8-1.3) mg/dL Est Cr Clr Drug Dosing mL/min Estimated GFR (MDRD) ml/min Glucose (74-106) mg/dL Hemoglobin A1c 5.6 (4.5-6.2) % Calcium (8.5-10.1) mg/dL 11/01/18 Range/Units 05:15 WBC (4.0-11.0) K/uL RBC (4.50-5.90) M/uL Hgb (13.0-17.0) g/dL Hct (38.0-50.0) % MCV (80.0-98.0) fL MCH (27.0-32.0) pg MCHC (31.0-37.0) g/dL RDW Std Deviation (28.0-62.0) fl RDW Coeff of Mirta (11.0-15.0) % Plt Count (150-400) K/uL MPV (7.40-12.00) fL Neut % (Auto) (48.0-80.0) % Lymph % (Auto) (16.0-40.0) % Foster % (Auto) (0.0-15.0) % Eos % (Auto) (0.0-7.0) % Baso % (Auto) (0.0-1.5) % Neut # (Auto) (1.4-5.7) K/uL Lymph # (Auto) (0.6-2.4) K/uL Foster # (Auto) (0.0-0.8) K/uL Eos # (Auto) (0.0-0.7) K/uL Baso # (Auto) (0.0-0.1) K/uL Nucleated RBC % /100WBC Nucleated RBCs # K/uL ESR (0-14) mm/hr Sodium 141 (136-148) mmol/L Potassium 4.3 (3.5-5.1) mmol/L Chloride 106 (98-107) mmol/L Carbon Dioxide 26.4 (21.0-32.0) mmol/L BUN 11 (7.0-18.0) mg/dL Creatinine 0.9 (0.8-1.3) mg/dL Est Cr Clr Drug Dosing 122.01 mL/min Estimated GFR (MDRD) > 60.0 ml/min Glucose 106 (74-106) mg/dL Hemoglobin A1c (4.5-6.2) % Calcium 8.8 (8.5-10.1) mg/dL JESUS Results - Last 24 hrs: Microbiology 10/31/18 01:38 Aerobic Blood Culture - Preliminary Blood - Venous - Lab Draw NO GROWTH AFTER 1 DAY Anaerobic Blood Culture - Preliminary NO GROWTH AFTER 1 DAY 10/31/18 01:23 Aerobic Blood Culture - Preliminary Blood - Venous NO GROWTH AFTER 1 DAY Anaerobic Blood Culture - Preliminary NO GROWTH AFTER 1 DAY Med Orders - Current: Current Medications Acetaminophen (Tylenol) 650 mg PO Q6H PRN PRN Reason: Pain (mild 1-3) Enoxaparin Sodium (Lovenox) 40 mg SUBCUT Q24H COUNTS INCLUDE 234 BEDS AT THE [facility] Last Admin: 10/31/18 10:05 Dose: 40 mg Sodium Chloride (Normal Saline) 1,000 mls @ 100 mls/hr IV ASDIRECTED COUNTS INCLUDE 234 BEDS AT THE [facility] Last Admin: 10/31/18 16:06 Dose: 100 mls/hr Vancomycin HCl 1.25 gm/ Sodium (Chloride) 250 mls @ 166.667 mls/hr IV Q8H COUNTS INCLUDE 234 BEDS AT THE [facility] Last Admin: 11/01/18 02:10 Dose: 166.667 mls/hr Metronidazole 500 mg/ Premix 100 mls @ 100 mls/hr IV Q6H COUNTS INCLUDE 234 BEDS AT THE [facility] Last Admin: 11/01/18 06:47 Dose: 100 mls/hr Ciprofloxacin/Dextrose 400 mg/ (Premix) 200 mls @ 200 mls/hr IV Q12H COUNTS INCLUDE 234 BEDS AT THE [facility] Last Admin: 10/31/18 23:37 Dose: 200 mls/hr Morphine Sulfate (Morphine) 1 mg IVPUSH Q2H PRN PRN Reason: Pain (severe 7-10) Ondansetron HCl (Zofran Odt) 4 mg PO Q4H PRN PRN Reason: Nausea/Vomiting Oxycodone HCl (Oxycodone) 5 mg PO Q4H PRN PRN Reason: Pain (moderate 4-6) Vancomycin HCl (Pharmacy To Dose - Vancomycin) 1 dose .XX ASDIRECTED COUNTS INCLUDE 234 BEDS AT THE [facility] Discontinued Medications Diphenhydramine HCl (Benadryl) 25 mg IVPUSH ONETIME ONE Stop: 10/31/18 10:49 Last Admin: 10/31/18 11:01 Dose: 25 mg Diphtheria/Tetanus/Acell Pertussis (Adacel) 0.5 ml IM .ONCE ONE Stop: 10/31/18 01:35 Last Admin: 10/31/18 01:39 Dose: 0.5 ml Sodium Chloride (Normal Saline) 1,000 mls @ 999 mls/hr IV STAT ONE Stop: 10/31/18 02:04 Last Admin: 10/31/18 01:28 Dose: 999 mls/hr Lidocaine HCl (Xylocaine-Mpf 1%) Confirm Administered Dose 5 mls @ as directed .ROUTE .STK-MED ONE Stop: 10/31/18 01:59 Last Admin: 10/31/18 02:33 Dose: Not Given Clindamycin Phosphate 300 mg/ (Sodium Chloride) 52 mls @ 100 mls/hr IV ONETIME ONE Stop: 10/31/18 02:44 Last Admin: 10/31/18 04:07 Dose: Not Given Vancomycin HCl 1 gm/ Sodium (Chloride) 250 mls @ 250 mls/hr IV ONETIME ONE Stop: 10/31/18 03:12 Last Admin: 10/31/18 02:40 Dose: 250 mls/hr Sodium Chloride (Normal Saline) 1,000 mls @ 125 mls/hr IV STAT TOÑO Last Admin: 10/31/18 02:40 Dose: 125 mls/hr Clindamycin Phosphate 300 mg/ (Premix) 50 mls @ 150 mls/hr IV Q8H TOÑO Clindamycin Phosphate 300 mg/ (Premix) 50 mls @ 150 mls/hr IV ONETIME ONE Stop: 10/31/18 04:19 Last Admin: 10/31/18 04:07 Dose: 150 mls/hr Piperacillin Sod/Tazobactam (Sod 4.5 gm/ Sodium Chloride) 100 mls @ 200 mls/hr IV Q6H TOÑO Last Admin: 10/31/18 09:57 Dose: 200 mls/hr Ampicillin Sodium/Sulbactam (Sodium 1.5 gm/ Sodium Chloride) 50 mls @ 200 mls/ hr IV Q6H TOÑO Ciprofloxacin/Dextrose 400 mg/ (Premix) 200 mls @ 200 mls/hr IV Q12H COUNTS INCLUDE 234 BEDS AT THE [facility] Last Admin: 10/31/18 21:43 Dose: Not Given Metronidazole 500 mg/ Premix 100 mls @ 100 mls/hr IV QID COUNTS INCLUDE 234 BEDS AT THE [facility] Lidocaine HCl (Xylocaine 1%) 10 ml INJECT ONETIME ONE Stop: 10/31/18 01:28 Last Admin: 10/31/18 01:46 Dose: Not Given Lidocaine HCl (Xylocaine-Mpf 1%) 5 ml INJECT ONETIME ONE Stop: 10/31/18 01:38 Last Admin: 10/31/18 02:00 Dose: 5 ml <Morteza Conte - Last Filed: 11/01/18 10:53> Discharge Summary - Hospital Course Free Text/Narrative:: I have seen and examined the patient independently of Tam Sheets MD,certified court/medical interpreter. I have discussed the case with him. I agree with the assessment and plan of care outlined by certified court/medical interpreter. Please see orders. - Patient Data Vitals - Most Recent: Last Vital Signs Temp 37.2 C 11/01/18 08:00 Pulse 84 11/01/18 08:00 Resp 16 11/01/18 08:00 BP 134/72 11/01/18 08:00 Pulse Ox 97 11/01/18 08:00 I&O - Last 24 hours: Intake & Output 10/31/18 11/01/18 11/01/18 22:59 06:59 14:59 Intake Total 3555 2483 Output Total 1608 3100 Balance 1055 -617 Lab Results - Last 24 hrs: Laboratory Results - last 24 hr 11/01/18 11/01/18 Range/Units 05:15 05:15 WBC 16.48 H (4.0-11.0) K/uL RBC 3.87 L (4.50-5.90) M/uL Hgb 11.4 L (13.0-17.0) g/dL Hct 35.5 L (38.0-50.0) % MCV 91.7 (80.0-98.0) fL MCH 29.5 (27.0-32.0) pg MCHC 32.1 (31.0-37.0) g/dL RDW Std Deviation 47.5 (28.0-62.0) fl RDW Coeff of Mirta 14 (11.0-15.0) % Plt Count 240 (150-400) K/uL MPV 9.90 (7.40-12.00) fL Neut % (Auto) 72.1 (48.0-80.0) % Lymph % (Auto) 18.6 (16.0-40.0) % Foster % (Auto) 7.0 (0.0-15.0) % Eos % (Auto) 2.1 (0.0-7.0) % Baso % (Auto) 0.2 (0.0-1.5) % Neut # (Auto) 11.9 H (1.4-5.7) K/uL Lymph # (Auto) 3.1 H (0.6-2.4) K/uL Foster # (Auto) 1.2 H (0.0-0.8) K/uL Eos # (Auto) 0.4 (0.0-0.7) K/uL Baso # (Auto) 0.0 (0.0-0.1) K/uL Nucleated RBC % 0.0 /100WBC Nucleated RBCs # 0 K/uL ESR 60 H (0-14) mm/hr Sodium 141 (136-148) mmol/L Potassium 4.3 (3.5-5.1) mmol/L Chloride 106 (98-107) mmol/L Carbon Dioxide 26.4 (21.0-32.0) mmol/L BUN 11 (7.0-18.0) mg/dL Creatinine 0.9 (0.8-1.3) mg/dL Est Cr Clr Drug Dosing 122.01 mL/min Estimated GFR (MDRD) > 60.0 ml/min Glucose 106 (74-106) mg/dL Calcium 8.8 (8.5-10.1) mg/dL JESUS Results - Last 24 hrs: Microbiology 10/31/18 01:38 Aerobic Blood Culture - Preliminary Blood - Venous - Lab Draw NO GROWTH AFTER 1 DAY Anaerobic Blood Culture - Preliminary NO GROWTH AFTER 1 DAY 10/31/18 01:23 Aerobic Blood Culture - Preliminary Blood - Venous NO GROWTH AFTER 1 DAY Anaerobic Blood Culture - Preliminary NO GROWTH AFTER 1 DAY Med Orders - Current: Current Medications Acetaminophen (Tylenol) 650 mg PO Q6H PRN PRN Reason: Pain (mild 1-3) Enoxaparin Sodium (Lovenox) 40 mg SUBCUT Q24H COUNTS INCLUDE 234 BEDS AT THE [facility] Last Admin: 11/01/18 10:39 Dose: Not Given Sodium Chloride (Normal Saline) 1,000 mls @ 100 mls/hr IV ASDIRECTED COUNTS INCLUDE 234 BEDS AT THE [facility] Last Admin: 10/31/18 16:06 Dose: 100 mls/hr Vancomycin HCl 1.25 gm/ Sodium (Chloride) 250 mls @ 166.667 mls/hr IV Q8H COUNTS INCLUDE 234 BEDS AT THE [facility] Last Admin: 11/01/18 10:40 Dose: Not Given Metronidazole 500 mg/ Premix 100 mls @ 100 mls/hr IV Q6H COUNTS INCLUDE 234 BEDS AT THE [facility] Last Admin: 11/01/18 06:47 Dose: 100 mls/hr Ciprofloxacin/Dextrose 400 mg/ (Premix) 200 mls @ 200 mls/hr IV Q12H COUNTS INCLUDE 234 BEDS AT THE [facility] Last Admin: 10/31/18 23:37 Dose: 200 mls/hr Morphine Sulfate (Morphine) 1 mg IVPUSH Q2H PRN PRN Reason: Pain (severe 7-10) Ondansetron HCl (Zofran Odt) 4 mg PO Q4H PRN PRN Reason: Nausea/Vomiting Oxycodone HCl (Oxycodone) 5 mg PO Q4H PRN PRN Reason: Pain (moderate 4-6) Vancomycin HCl (Pharmacy To Dose - Vancomycin) 1 dose .XX ASDIRECTED COUNTS INCLUDE 234 BEDS AT THE [facility] Discontinued Medications Diphenhydramine HCl (Benadryl) 25 mg IVPUSH ONETIME ONE Stop: 10/31/18 10:49 Last Admin: 10/31/18 11:01 Dose: 25 mg Diphtheria/Tetanus/Acell Pertussis (Adacel) 0.5 ml IM .ONCE ONE Stop: 10/31/18 01:35 Last Admin: 10/31/18 01:39 Dose: 0.5 ml Sodium Chloride (Normal Saline) 1,000 mls @ 999 mls/hr IV STAT ONE Stop: 10/31/18 02:04 Last Admin: 10/31/18 01:28 Dose: 999 mls/hr Lidocaine HCl (Xylocaine-Mpf 1%) Confirm Administered Dose 5 mls @ as directed .ROUTE .STK-MED ONE Stop: 10/31/18 01:59 Last Admin: 10/31/18 02:33 Dose: Not Given Clindamycin Phosphate 300 mg/ (Sodium Chloride) 52 mls @ 100 mls/hr IV ONETIME ONE Stop: 10/31/18 02:44 Last Admin: 10/31/18 04:07 Dose: Not Given Vancomycin HCl 1 gm/ Sodium (Chloride) 250 mls @ 250 mls/hr IV ONETIME ONE Stop: 10/31/18 03:12 Last Admin: 10/31/18 02:40 Dose: 250 mls/hr Sodium Chloride (Normal Saline) 1,000 mls @ 125 mls/hr IV STAT TOÑO Last Admin: 10/31/18 02:40 Dose: 125 mls/hr Clindamycin Phosphate 300 mg/ (Premix) 50 mls @ 150 mls/hr IV Q8H TOÑO Clindamycin Phosphate 300 mg/ (Premix) 50 mls @ 150 mls/hr IV ONETIME ONE Stop: 10/31/18 04:19 Last Admin: 10/31/18 04:07 Dose: 150 mls/hr Piperacillin Sod/Tazobactam (Sod 4.5 gm/ Sodium Chloride) 100 mls @ 200 mls/hr IV Q6H COUNTS INCLUDE 234 BEDS AT THE [facility] Last Admin: 10/31/18 09:57 Dose: 200 mls/hr Ampicillin Sodium/Sulbactam (Sodium 1.5 gm/ Sodium Chloride) 50 mls @ 200 mls/ hr IV Q6H TOÑO Ciprofloxacin/Dextrose 400 mg/ (Premix) 200 mls @ 200 mls/hr IV Q12H COUNTS INCLUDE 234 BEDS AT THE [facility] Last Admin: 10/31/18 21:43 Dose: Not Given Metronidazole 500 mg/ Premix 100 mls @ 100 mls/hr IV QID TOÑO Lidocaine HCl (Xylocaine 1%) 10 ml INJECT ONETIME ONE Stop: 10/31/18 01:28 Last Admin: 10/31/18 01:46 Dose: Not Given Lidocaine HCl (Xylocaine-Mpf 1%) 5 ml INJECT ONETIME ONE Stop: 10/31/18 01:38 Last Admin: 10/31/18 02:00 Dose: 5 ml
[2018-11-01] MEDS: Enoxaparin 40 MG/0.4 ML Syringe SUBCUT SCH (10:39)
== END 2018-11-01 11:00 | disposition home or self-care (01) | DRG 603 ==
LOC: MW.ED 01:00 → MW.MS 02:18
PROVIDERS: ADMIT Internal Medicine; ATTEND Internal Medicine
PROC: 0H98XZZ Drainage of Buttock Skin, External Approach (ICD-10-PCS; principal; 2018-10-31)
PROC: 3E0234Z Introduction of Serum, Toxoid and Vaccine into Muscle, Percutaneous Approach (ICD-10-PCS; 2018-10-31)
DX: L02.31 Cutaneous abscess of buttock (principal); L03.317 Cellulitis of buttock; L50.9 Urticaria, unspecified; T36.0X5A Adverse effect of penicillins, initial encounter; F17.210 Nicotine dependence, cigarettes, uncomplicated; Z23 Encounter for immunization
CPT/HCPCS: 36415; 80048; 80053; 81001; 83036; 83605; 85025; 85652; 87040; 87070; 87077; 87186; 90471; 90715; 96361; 96365; 99284-25; J0744; J1200; J1650; J2543; J3370; J3490; J7030; J7040; J7050

== ENCOUNTER 2019-05-12 13:41 | Emergency (ER) | payer MEDICAID, OTHER ==
--- NOTE | 2019-05-12 14:08 | EDM.PDOC ---
ED HPI GENERAL MEDICAL PROBLEM - General Chief Complaint: Gastrointestinal Problem Stated Complaint: LOOSE STOOL FOR 7+ MONTHS Time Seen by Provider: 05/12/19 14:02 Source of Information: Reports: Patient History Limitations: Reports: No Limitations - History of Present Illness INITIAL COMMENTS - FREE TEXT/NARRATIVE: HISTORY AND PHYSICAL: History of present illness: Patient is a 33-year-old male presents to the ED with complaint of diarrhea x 7 months. Patient states he came today because he had the day off. He states he has 2-3 loose, watery stools per day. He denies abdominal pain, fevers, chills, nausea, vomiting, melena, hematochezia, hematuria, dysuria. He denies significant past medical history. He smokes 1ppd x 20 years. States he switched to lactose free milk and that didn't help. Review of systems: As per history of present illness and below otherwise all systems reviewed and negative. Past medical history: As per history of present illness and as reviewed below otherwise noncontributory. Surgical history: As per history of present illness and as reviewed below otherwise noncontributory. Social history: No reported history of drug or alcohol abuse. Family history: As per history of present illness and as reviewed below otherwise noncontributory. Physical exam: General: Patient sitting comfortably in no acute distress and nontoxic appearing HEENT: Atraumatic, normocephalic, pupils reactive, negative for conjunctival pallor or scleral icterus, mucous membranes moist, throat clear, neck supple, nontender, trachea midline. No meningeal signs. Lungs: Clear to auscultation, breath sounds equal bilaterally, chest nontender. Heart: S1S2, regular, negative for clicks, rubs, or overt murmur. Abdomen: Soft, nondistended, nontender. Negative for masses or hepatosplenomegaly. Negative for costovertebral tenderness. No rigidity, rebound , guarding. Pelvis: Stable nontender. Genitourinary: Deferred. Rectal: Deferred. Extremities: Atraumatic, negative for cords or calf pain. Neurovascular unremarkable. Neuro: Awake, alert, oriented. Cranial nerves II through XII unremarkable. Cerebellum unremarkable. Motor and sensory unremarkable throughout. Exam nonfocal. Notes: Diagnostics: CBC, CMP, stool studies Therapeutics: none Prescriptions: Azithromycin Impression: Diarrhea, campylobacter Plan: Follow up with primary care provider Return to ED As needed as discussed Definitive disposition and diagnosis as appropriate pending reevaluation and review of above. - Related Data Allergies Allergy/AdvReac Type Severity Reaction Status Date / Time piperacillin [From Zosyn] Allergy Mild Itching Verified 05/12/19 13:54 tazobactam [From Zosyn] Allergy Mild Itching Verified 05/12/19 13:54 Home Meds: Home Meds Azithromycin 500 mg PO DAILY 3 Days #3 tablet 05/12/19 [Rx] Past Medical History HEENT History: Reports: None Cardiovascular History: Reports: None Respiratory History: Reports: None Gastrointestinal History: Reports: Other (See Below) Other Gastrointestinal History: HERNIA Genitourinary History: Reports: None Musculoskeletal History: Reports: None Neurological History: Reports: None Psychiatric History: Reports: None Endocrine/Metabolic History: Reports: None Hematologic History: Reports: None Oncologic (Cancer) History: Reports: None Dermatologic History: Reports: None - Infectious Disease History Infectious Disease History: Reports: None - Past Surgical History GI Surgical History: Reports: Hernia, Inguinal Social & Family History - Family History Family Medical History: Noncontributory - Tobacco Use Smoking Status *Q: Current Every Day Smoker Years of Tobacco use: 20 Packs/Tins Daily: 1 - Caffeine Use Caffeine Use: Reports: Soda Caffeine Use Comment: Rarely drinks soda - Recreational Drug Use Recreational Drug Use: No ED ROS GENERAL - Review of Systems Review Of Systems: ROS reveals no pertinent complaints other than HPI. ED EXAM, GI/ABD - Physical Exam Exam: See Below (see dictation) Course - Vital Signs Last Recorded V/S: Last Vital Signs Temp 97.4 F 05/12/19 13:51 Pulse 81 05/12/19 13:51 Resp 18 05/12/19 13:51 BP 137/89 05/12/19 13:51 Pulse Ox 96 05/12/19 13:51 - Orders/Labs/Meds Orders: Active Orders 24 hr Category Date Time Status CULTURE STOOL + CAMPY+SHIGATOX [RM] Stat Lab 05/12/19 14:58 Results Isolation [COMM] Stat Oth 05/12/19 14:02 Ordered Labs: Laboratory Tests 05/12/19 05/12/19 Range/Units 14:08 14:08 WBC 7.33 (4.0-11.0) K/uL RBC 4.97 (4.50-5.90) M/uL Hgb 15.5 (13.0-17.0) g/dL Hct 44.0 (38.0-50.0) % MCV 88.5 (80.0-98.0) fL MCH 31.2 (27.0-32.0) pg MCHC 35.2 (31.0-37.0) g/dL RDW Std Deviation 44.3 (28.0-62.0) fl RDW Coeff of Mirta 14 (11.0-15.0) % Plt Count 250 (150-400) K/uL MPV 10.00 (7.40-12.00) fL Neut % (Auto) 46.4 L (48.0-80.0) % Lymph % (Auto) 40.9 H (16.0-40.0) % Nance % (Auto) 8.9 (0.0-15.0) % Eos % (Auto) 3.5 (0.0-7.0) % Baso % (Auto) 0.3 (0.0-1.5) % Neut # (Auto) 3.4 (1.4-5.7) K/uL Lymph # (Auto) 3.0 H (0.6-2.4) K/uL Nance # (Auto) 0.7 (0.0-0.8) K/uL Eos # (Auto) 0.3 (0.0-0.7) K/uL Baso # (Auto) 0.0 (0.0-0.1) K/uL Nucleated RBC % 0.0 /100WBC Nucleated RBCs # 0 K/uL Sodium 138 (136-148) mmol/L Potassium 3.9 (3.5-5.1) mmol/L Chloride 105 (98-107) mmol/L Carbon Dioxide 21.6 (21.0-32.0) mmol/L BUN 14 (7.0-18.0) mg/dL Creatinine 0.8 (0.8-1.3) mg/dL Est Cr Clr Drug Dosing 128.88 mL/min Estimated GFR (MDRD) > 60.0 ml/min Glucose 162 H (74-106) mg/dL Calcium 8.9 (8.5-10.1) mg/dL Total Bilirubin 0.6 (0.2-1.0) mg/dL AST 28 (15-37) IU/L ALT 42 (14-63) IU/L Alkaline Phosphatase 117 H (46-116) U/L Total Protein 7.6 (6.4-8.2) g/dL Albumin 3.5 (3.4-5.0) g/dL Globulin 4.1 H (2.6-4.0) g/dL Albumin/Globulin Ratio 0.9 (0.9-1.6) Departure - Departure Time of Disposition: 16:00 Disposition: Home, Self-Care 01 Condition: Good Clinical Impression: Diarrhea, Campylobacter diarrhea - Discharge Information Prescriptions: Azithromycin 500 mg PO DAILY 3 Days #3 tablet Referrals: PCP,Unknown [Primary Care Provider] - Forms: ED Department Discharge Additional Instructions: The following information is given to patients seen in the emergency department who are being discharged to home. This information is to outline your options for follow-up care. We provide all patients seen in our emergency department with a follow-up referral. The need for follow-up, as well as the timing and circumstances, are variable depending upon the specifics of your emergency department visit. If you don't have a primary care physician on staff, we will provide you with a referral. We always advise you to contact your personal physician following an emergency department visit to inform them of the circumstance of the visit and for follow-up with them and/or the need for any referrals to a consulting specialist. The emergency department will also refer you to a specialist when appropriate. This referral assures that you have the opportunity for follow-up care with a specialist. All of these measure are taken in an effort to provide you with optimal care, which includes your follow-up. Under all circumstances we always encourage you to contact your private physician who remains a resource for coordinating your care. When calling for follow-up care, please make the office aware that this follow-up is from your recent emergency room visit. If for any reason you are refused follow-up, please contact the [facility] Emergency Department at and asked to speak to the emergency department charge nurse. [facility] [address] [place] [id number] [facility] [address] [place] [id number] Take antibiotic as instructed Follow up with primary care provider Return to ED as needed as discussed - My Orders Last 24 Hours: My Active Orders 05/12/19 14:02 Isolation [COMM] Stat 05/12/19 14:58 CULTURE STOOL + CAMPY+SHIGATOX [RM] Stat - Assessment/Plan Last 24 Hours: My Active Orders 05/12/19 14:02 Isolation [COMM] Stat 05/12/19 14:58 CULTURE STOOL + CAMPY+SHIGATOX [RM] Stat
[2019-05-12 14:35] LABS: CHLORIDE,CL 105 mmol/L (98-107); SODIUM,NA 138 mmol/L (136-148)
== END 2019-05-12 16:11 | disposition home or self-care (01) ==
LOC: MW.ED 13:41
DX: A04.5 Campylobacter enteritis (principal); F17.210 Nicotine dependence, cigarettes, uncomplicated; Z88.8 Allergy status to other drugs, medicaments and biological substances
CPT/HCPCS: 36415; 80053; 85025; 87046; 87324; 87899; 99284